=== PATIENT | female | born 1985 | race African-American/Black ===

== ENCOUNTER 2017-12-29 17:08 | Emergency (ER) | payer BC ==
[2017-12-29 18:08] LABS: #Basophils 0.1 thou/uL (0.0-0.2); #Lymphocytes 2.8 thou/uL (1.20-3.40); #Monocytes 0.4 thou/uL (0.11-0.59); #Neutrophils 4.7 thou/uL (1.40-6.50); %Eosinophils 0.2 % (0.0-10.0); %Monocytes 5.1 % (0.0-10.0); %Neutrophils 58.7 % (42.0-75.0); Hemoglobin 12.5 g/dL (12.0-16.0); Mean Corpuscular HGB CONC 34.5 g/dL (32.0-36.0); Mean Corpuscular Hemoglobin 31.4 pg (27.0-31.0); Platelet Count 321 thou/uL (130-400); RBC Distribution Width 11.4 % (11.5-14.5); Red Blood Cell (RBC) Count 3.99 mill/uL (4.20-5.40)
[2017-12-29 18:31] LABS: ALT (SGPT) 16 U/L (8-55); AST (SGOT) 15 U/L (5-34); Albumin 4.4 g/dL (3.5-5.0); Alkaline Phosphatase 92 U/L (40-150); Anion Gap 14 mmol/L (10-20); BUN (Urea Nitrogen) 8 mg/dL (7.0-18.7); Bilirubin, Total 0.6 mg/dL (0.2-1.2); Calc. Creatinine Clearance 0 mL/min (70-130); Calcium 9.8 mg/dL (7.8-10.44); Carbon Dioxide 21 mmol/L (22-29); Chloride 105 mmol/L (98-107); Estimated GFR-MDRD Greater than 90; Globulin 3.9 g/dL (2.4-3.5); Glucose 94 mg/dL (70-105); Potassium 3.7 mmol/L (3.5-5.1); Protein, Total 8.3 g/dL (6.0-8.3); Sodium 136 mmol/L (136-145)
[2017-12-29 18:46] LABS: Bilirubin Negative (Negative); Blood, Urine Large (Negative); Clarity CLOUDY (Clear); Glucose, Urine (Dipstick) Negative (Negative); Leukocyte Trace (Negative); Nitrite Negative (Negative); Protein, Urine (Dipstick) Negative (Neg-Trace); Specific Gravity, Urine 1.023 (1.002-1.036)
[2017-12-29 18:47] LABS: Bacteria/HPF 1+ HPF (None Seen); Hyaline Casts/LPF 4-6 HYALINE CAST LPF (0-3 Hyaline); Squamous Epithelial 0-3 HPF (0-3)
[2017-12-29 18:50] LABS: Yeast-AUWi Flag 45.6 (0-25.0)
[2017-12-29 19:06] LABS: RBC/HPF 21-50 HPF (0-3); Yeast-All Forms None Seen HPF (None Seen)
--- NOTE | 2017-12-29 19:14 | ULT ---
OBSTETRIC SONOGRAM TRANSABDOMINAL AND TRANSVAGINAL IMAGING 12/29/17 HISTORY: Early . Pain, bleeding. FINDINGS: The uterus has a heterogeneous echotexture and is 8.0 cm. 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 Within the right horn, gestational sac is present with a yolk sac. Measurements corre late with six weeks, three days gestational age giving an estimated date of delivery of 08/21/18. Feta l pole and heart motion not visualized. Within the left uterine horn, echogenicity extends, having th e appearance of decidual reaction. No free fluid. Left ovary is 4.0 cm with a normal appearance. Follicles and good color and spectral doppler flow. Ri ght ovary measures up to 3.4 cm with an internal oval solid nodule measuring 2.5 cm. Good color and s pectral doppler flow. IMPRESSION: Early gestational sac within the right horn of a bicornuate appearance uterus. No pole yet visi ble. Measurements correlate with six weeks, 3 days gestational size. Appearance of decidual reaction into the left uterine horn. Please consider close clinical and sonographic followup. POS: SCARLET
[2018-01-02 01:43] LABS: Chlamydia by PCR Not Detected (NotDetected); GC by PCR Not Detected (NotDetected)
== END 2017-12-29 19:56 | disposition home or self-care (01) ==
LOC: ERS 17:08
DX: O20.0 Threatened abortion (principal); O23.41 Unspecified infection of urinary tract in pregnancy, first trimester; Z3A.01 Less than 8 weeks gestation of pregnancy
CPT/HCPCS: 76856; 80053; 81003; 81015; 84702; 85025; 86900; 86901; 87086; 87480; 87491; 87510; 87591; 87660

== ENCOUNTER 2018-01-14 13:20 | Outpatient (CLI) | payer BC ==
--- NOTE | 2018-01-14 14:14 | ULT ---
ULTRASOUND PELVIC TRANSVAGINAL WITH DOPPLER: HISTORY: Missed . COMPARISON: Ultrasound of pelvis 12/29/17. FINDINGS: Real-time, treviño scale, color flow, and spectral analysis of the pelvis was performed via the transabd ominal and transvaginal approach. There is no heart rate of the pole. There is some hemorrhage within the endometrial cavity. G estational sac is visualized as well as the yolk sac and pole. IMPRESSION: No heart rate documented. POS: SCARLET
== END 2018-01-14 13:21 | disposition home or self-care (01) ==
LOC: ULT 13:20
PROVIDERS: ATTEND Family Medicine
DX: O03.9 Complete or unspecified spontaneous abortion without complication (principal)
CPT/HCPCS: 76856

== ENCOUNTER 2019-03-21 12:55 | Outpatient (CLI) | payer BC ==
--- NOTE | 2019-03-21 14:01 | ULT ---
ULTRASOUND PELVIC ULTRASOUND TRANSVAGINAL DOPPLER DUPLEX: DATE: 03/21/2019 HISTORY: 33-year-old female with threatened in first trimester. As requested, report was called to Dr. Elida Walker at 1:59 PM 03/21/2019 TECHNIQUE: Transabdominal transducer and endovaginal transducer used to visualize intrapelvic contents with treviño scale, color-flow, and spectral analysis. FINDINGS: There is an intrauterine gestational sac which has an elongated configuration. It contains an embryonic pole with crown-rump length of 8.3 mm, corresponding to 6 weeks 6 days gesta tional age. No embryonic cardiac activity is detected. There is a focal 2.3 x 0.7 cm subchorionic hemorrhage. No free fluid in the cul-de-sac. There is a 3 x 2.5 x 3 cm left ovarian cyst. Right ovary not visualized. IMPRESSION: 1.) First trimester intrauterine demise (missed ). 2.) Subchorionic hemorrhage. 3.) 3 cm left corpus luteal cyst.
== END 2019-03-21 12:56 | disposition home or self-care (01) ==
LOC: SCSULT 12:55
PROVIDERS: ATTEND Family Medicine
DX: O20.0 Threatened abortion (principal); O02.1 Missed abortion; N83.12 Corpus luteum cyst of left ovary
CPT/HCPCS: 76856

== ENCOUNTER 2019-07-20 11:09 | Outpatient (CLI) | payer BC ==
--- NOTE | 2019-07-20 11:31 | ULT ---
TRANSVAGINAL PELVIC ULTRASOUND: INDICATION: History of threatened . COMPARISON: Prior study dated 03/21/2019. TECHNIQUE: Transvaginal grayscale, color Doppler, and spectral Doppler images were obtained of the lvis. FINDINGS: The uterus measures 6.8 x 4.3 x 6.3 cm. The right ovary measures 2.7 x 2.2 x 2.5 cm. Left ovary measu res 3.3 x 2.3 x 1.6 cm. There is an intrauterine gestational sac containing a pole and yolk sac. The yolk sac measures 0.48 cm. The crown-rump length was 5.24 cm, giving an estimated gestational age of 6 weeks and 2 days. The mean sac diameter was 1.81 cm, giving estimated gestational age of 6 weeks and 5 days. The average gestational age by ultrasound is 6 weeks and 4 days with estimated due date of March 10, 2020. There is a mildly complex cyst within the right ovary suspicious for corpus luteal cyst measuring 1.3 x 0.9 cm. There is normal flow to the right and left ovary. No free fluid is identified. No perigestational hemorrhage is noted. No heart tones are associated with the pole. IMPRESSION: 1. Intrauterine gestational sac with a pole and yolk sac identified. There are no documentable heart tones associated with the pole. Findings may reflect early ; however, an intrauterine demise is not entirely excluded. Close clinical and sonographic follow-up is recom mended. 2. Right ovarian corpus luteal cyst. Transcribed Date/Time: 07/20/2019 12:22 PM
== END 2019-07-20 11:10 | disposition home or self-care (01) ==
LOC: BICULT 11:09
PROVIDERS: ATTEND Family Medicine
DX: O20.0 Threatened abortion (principal); O34.81 Maternal care for other abnormalities of pelvic organs, first trimester; N83.201 Unspecified ovarian cyst, right side; Z3A.01 Less than 8 weeks gestation of pregnancy
CPT/HCPCS: 76856

== ENCOUNTER 2019-08-15 12:38 | Outpatient (CLI) | payer BC ==
--- NOTE | 2019-08-15 12:57 | ULT ---
Ultrasound thyroid: DATE: 08/15/2019 HISTORY: 33-year-old female with right neck swelling and ICD-10: "R 76.0 raised antibody titer" FINDINGS: Isthmus: 0.2 cm Right lobe: 4.7 x 1.6 x 1.8 cm. Left lobe: 4.8 x 1.8 x 1.2 cm. Thyroid parenchymal echogenicity and echotexture are homogeneous and normal. No solid or cystic lesion identified. IMPRESSION: Negative
== END 2019-08-15 12:39 | disposition home or self-care (01) ==
LOC: BICULT 12:38
PROVIDERS: ATTEND Internal Medicine Rheumatology
DX: N96 Recurrent pregnancy loss (principal); R76.0 Raised antibody titer
CPT/HCPCS: 76536

== ENCOUNTER 2019-09-05 09:39 | Outpatient (CLI) | payer BC ==
[~2019-09-05 09:39] MED LIST: Iopamidol 300 61% 50 ML VIAL FS ONE
[2019-09-05 10:12] LABS: BHCG - Serum Negative (NEGATIVE); Pregs Control Background? CLEAR/WHITE (CLR/WHITE); Pregs Control Bar Appear? YES (CONTROL BAR)
[2019-09-05 10:13] LABS: Follow-up Chemistry Comp? YES
--- NOTE | 2019-09-05 12:26 | RAD ---
EXAM: XR Hysterosalpingogram PROVIDED CLINICAL HISTORY: Infertility. History of multiple prior miscarriages. COMPARISON: None FINDINGS: The procedure was discussed with the patient, and the patient was placed in the supine position on th e fluoroscopy table. Speculum was placed, and the cervix was exposed. The cervix was prepped with Betadine. A sound device was placed in the endocervical canal demonstrating patency. As a result, a 5 Cypriot catheter with distal balloon was placed, and the distal balloon was filled with gas. Approximately 10 mL of contrast was injected. Initially, contrast only filled a portion of the uterin e cavity and right fallopian tube. The balloon on the catheter was retracted and contrast was again injected, and the left fallopian tube was then visualized. There is free spill of contrast seen bilat erally. The distal balloon was deflated, and the catheter was removed. Patient tolerated the procedure well and without immediate complication. IMPRESSION: 1. 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 2. A few tiny punctate filling defects are seen within the most distal aspect of the right portion of the uterine cavity which appear to persist throughout the exam. This could potentially represent tiny synechiae within this portion of the uterine cavity. 3. Normal appearance of the bilateral fallopian tubes with free spill of contrast seen bilaterally.
== END 2019-09-05 09:40 | disposition home or self-care (01) ==
LOC: RAD 09:39
PROVIDERS: ATTEND Obstetrics & Gynecology
DX: Z31.41 Encounter for fertility testing (principal); N85.8 Other specified noninflammatory disorders of uterus
CPT/HCPCS: 36415; 58340; 74740; 84703; Q9967

== ENCOUNTER 2019-09-16 11:30 | Outpatient (CLI) | payer BC, OTHER | END 2019-09-16 11:31 | disposition home or self-care (01) | LOC: DTY/OP 11:30 | PROVIDERS: ATTEND Family Medicine | DX: R73.9 Hyperglycemia, unspecified (principal) | CPT/HCPCS: 97802 ==

== ENCOUNTER 2021-01-29 08:00 | Outpatient (CLI) | payer BC | END 2021-01-29 08:01 | disposition home or self-care (01) | LOC: BICULT 08:00 | PROVIDERS: ATTEND Obstetrics & Gynecology | DX: R10.11 Right upper quadrant pain (principal); N13.30 Unspecified hydronephrosis | CPT/HCPCS: 76705 ==

== ENCOUNTER 2023-02-04 11:25 | Emergency (ER) | payer BC ==
[2023-02-04 11:54] LABS: #Monocytes 0.3 thou/uL (0.11-0.59); #Neutrophils 4.3 thou/uL (1.40-6.50); %Basophils 0.3 % (0.0-1.0); %Eosinophils 0.2 % (0.0-10.0); %Lymphocytes 27.6 % (21.0-51.0); %Neutrophils 67.6 % (42.0-75.0); Hematocrit 39.1 % (36.0-47.0); Hemoglobin 12.5 g/dL (12.0-16.0); Mean Corpuscular Hemoglobin 31.1 pg (27.0-31.0); Mean Corpuscular Volume 97.3 fl (78.0-98.0); Mean Platelet Volume 8.7 fL (7.4-10.4); Platelet Count 342 10x3/uL (130-400); RBC Distribution Width 12.2 % (11.5-14.5); Red Blood Cell (RBC) Count 4.02 mill/uL (4.20-5.40); White Blood Cell (WBC) Count 6.4 10x3/uL (4.8-10.8)
[2023-02-04 13:15] LABS: Bacteria/HPF 1+ HPF (None Seen); Bilirubin Negative (Negative); Blood, Urine 3+ (Negative); CAUTI Indications for Culture Pelvic or flank pain; Clarity Clear (Clear); Glucose, Urine (Dipstick) Normal (Negative); Ketone, Urine 20 mg/dL (Negative); Leukocyte 25 Leu/uL (Negative); Nitrite Negative (Negative); Protein, Urine (Dipstick) 30 mg/dL (Neg-Trace); RBC/HPF 21-50 HPF (0-3); Specific Gravity, Urine 1.007 (1.002-1.036); Squamous Epithelial 0-3 HPF (0-3); Urobilinogen Normal mg/dL (Less than 2); pH, Urine 6.5 (5.0-9.0)
[2023-02-04 13:20] LABS: Urine Culture Reflex Yes Yes
[2023-02-04 13:23] LABS: ALT (SGPT) 17 U/L (8-55); AST (SGOT) 21 U/L (5-34); Albumin 3.6 g/dL (3.5-5.0); Alkaline Phosphatase 104 U/L (40-110); Anion Gap 16 mmol/L (10-20); BUN (Urea Nitrogen) 11 mg/dL (7.0-18.7); Bilirubin, Total 0.8 mg/dL (0.2-1.2); Calc. Creatinine Clearance 0 mL/min (70-130); Calcium 9.6 mg/dL (7.8-10.44); Carbon Dioxide 23 mmol/L (22-29); Chloride 105 mmol/L (98-107); Estimated GFR 112; Globulin 3.3 g/dL (2.4-3.5); Glucose 96 mg/dL (70-105); Potassium 3.9 mmol/L (3.5-5.1); Protein, Total 6.9 g/dL (6.0-8.3); Sodium 140 mmol/L (136-145)
[2023-02-04 13:26] LABS: Troponin I 0.066 ng/mL (< 0.028)
[2023-02-04] MEDS ORDERED: cefTRIAXone (ROCEPHIN) 2 GM VIAL ONE (13:58)
[2023-02-04] MEDS ORDERED: Aspirin Chewable 81 MG TAB ONE (14:38)
[2023-02-04] MEDS ORDERED: NIFEdipine 10 MG CAP PO SCH (15:00)
[2023-02-04] MEDS ORDERED: hydrALAZINE 20 MG/ML VIAL ONE (15:04)
[2023-02-04] MEDS ORDERED: Iopamidol-370 76% 500 ML MDV (1 ML CHARGE) ONE (15:59)
== END 2023-02-04 16:31 | disposition short-term general hospital (02) ==
LOC: ERS 11:25
DX: R77.8 Other specified abnormalities of plasma proteins (principal); E11.9 Type 2 diabetes mellitus without complications; Z79.84 Long term (current) use of oral hypoglycemic drugs; Z79.899 Other long term (current) drug therapy
CPT/HCPCS: 36415; 71275; 80053; 81001; 82570; 83615; 83880; 84443; 84484; 85025; 85379; 87086; 93005; J0360; J0696; Q9967

== ENCOUNTER 2023-11-04 09:35 | Outpatient (CLI) | payer BC | END 2023-11-04 09:36 | disposition home or self-care (01) | LOC: BICMAMMO 09:35 | PROVIDERS: ATTEND Family Medicine | DX: Z12.31 Encounter for screening mammogram for malignant neoplasm of breast (principal); Z80.3 Family history of malignant neoplasm of breast | CPT/HCPCS: 77063; 77067 ==